=== PATIENT | male | born 1960 | race Caucasian/White ===

== ENCOUNTER 2020-08-09 11:40 | Emergency (ER) | payer SELFPAY ==
[~2020-08-09] VITALS: Ht 175.2 cm; Wt 82.5 kg
[2020-08-09 11:40] VITALS: BP 161/92
[2020-08-09] MEDS ORDERED: NAPR-1071 PO (12:15)
[2020-08-09] MEDS ORDERED: KETOROLAC 60 MG/2 ML VIAL IM ONE (12:15)
[2020-08-09] MEDS ORDERED: ACHD5005 PO (12:15)
[2020-08-09] MEDS ORDERED: METH-732 PO (12:15)
[2020-08-09] MEDS ORDERED: ORPHENADRINE 60 MG/2 ML (NORFLEX) AMP (ED ONLY) IM ONE (12:15)
--- NOTE | 2020-08-09 12:15 | ED Back Pain ---
General Chief Complaint: Back Problems Stated Complaint: BACK PAIN Nursing Triage Note: PATIENT STATES HE BEGAN HAVING PAIN IN HIS LOWER BACK YESTERDAY EVENING. DENIES INJURY OR HX. "ITS FINE IF IM SITTING BUT SOON I TRY TO STAND IT GOES FROM 0 TO 9 OR 10." Nursing Sepsis Screen: No Definite Risk Source of Information: Patient Exam Limitations: No Limitations (JEROME LOUIS APRN) History of Present Illness Date Seen by Provider: Aug 09, 2020 Time Seen by Provider: 12:09 Initial Comments To ER with sudden onset midline low back pain that does not radiate. This began yesterday evening, he had just pulled his boat to the house, got out of the truck and shut the door when he had a sudden intense sharp midline back pain. He states that he is very active, does horseback riding, ATV riding, and never has any troubles with back pain. Pain is minimal when in a sitting position but much worse upon standing. Pain does not radiate down either of his legs, no loss of bowel or bladder control, no fevers or chills no history of cancer no history of IV drug use. Location: Lumbar Spine Timing/Duration: 12-24 Hours Severity: Severe Pain/Injury Location: Back Associated Symptoms: denies symptoms (JEROME LOUIS APRN) Allergies and Home Medications Allergies Coded Allergies: No Known Drug Allergies (Unverified , 08/09/20) Home Medications Hydrocodone/Acetaminophen 1 Each Tablet, 1 TAB PO Q4H PRN for PAIN-MODERATE (5- 7) Prescribed by: JEROME LOUIS on 08/09/20 1215 Methocarbamol 750 Mg Tablet, 750 MG PO Q6-8HR Prescribed by: JEROME LOUIS on 08/09/20 1215 Naproxen 500 Mg Tablet, 500 MG PO BID PRN for PAIN-MODERATE (5-7) Prescribed by: JEROME LOUIS on 08/09/20 1215 Patient Home Medication List Home Medication List Reviewed: Yes (JEROME LOUIS APRN) Review of Systems Constitutional: see HPI EENTM: see HPI Respiratory: no symptoms reported Cardiovascular: no symptoms reported Genitourinary: no symptoms reported Musculoskeletal: see HPI, back pain Skin: no symptoms reported Psychiatric/Neurological: No Symptoms Reported (JEROME LOUIS APRN) Past Pzpyzcu-Mreoin-Wllarm Hx Patient Social History Alcohol Use: Denies Use Type Used: Cigarettes Recent Infectious Disease Expo: No Recent Hopitalizations: No (JEROME LOUIS APRN) Seasonal Allergies Seasonal Allergies: Yes ([place]) (JEROME LOUIS APRN) Past Medical History Orthopedic Respiratory: No Cardiac: Yes High Cholesterol, Hypertension Neurological: No Genitourinary: No Gastrointestinal: No Musculoskeletal: No Endocrine: No HEENT: No Cancer: No Psychosocial: No Integumentary: No Blood Disorders: No (JEROME LOUIS APRN) Physical Exam Vital Signs Vital Signs - First Documented 08/09/20 11:40 Temp 36.7 Pulse 54 Resp 18 B/P (MAP) 161/92 (115) Pulse Ox 98 O2 Delivery Room Air (YESENIA YOUSIF MD) Vital Signs Capillary Refill : Less Than 3 Seconds (JEROME LOUIS APRN) Height, Weight, BMI Height: '" Weight: lbs. oz. kg; 26.00 BMI Method: General Appearance: No Apparent Distress, WD/WN Neck: Full Range of Motion, Normal Inspection Respiratory: No Accessory Muscle Use, No Respiratory Distress Gastrointestinal: Normal Bowel Sounds, Soft Extremity: Normal Capillary Refill, Normal Inspection Neurologic/Psychiatric: Alert, Oriented x3 Skin: Normal Color, Warm/Dry (JEROME LOUIS APRN) Progress/Results/Core Measures Results/Orders Medications Given in ED Current Medications Medications Dose Ordered Sig/Jonathan Route Start Time Stop Time Status Last Admin Dose Admin Ketorolac Tromethamine 60 mg ONCE ONCE IM 08/09/20 12:15 08/09/20 12:16 DC 08/09/20 12:18 60 MG Orphenadrine Citrate 60 mg ONCE ONCE IM 08/09/20 12:15 08/09/20 12:16 DC 08/09/20 12:18 60 MG (YESENIA YOUSIF MD) Vital Signs/I&O 08/09/20 11:40 Temp 36.7 Pulse 54 Resp 18 B/P (MAP) 161/92 (115) Pulse Ox 98 O2 Delivery Room Air (YESENIA YOUSIF MD) Blood Pressure Mean: 115 Departure Impression Primary Impression: Back pain Disposition: 01 HOME, SELF-CARE Condition: Stable Departure-Patient Inst. Decision time for Depature: 12:11 (JEROME LOUIS APRN) Referrals: GORAN BALLESTEROS HOLLY A MD ENOCH,EMPERATRIZ DRAPER,AYLEEN HUNT MD,LOCAL PHYSICIAN (PCP) Primary Care Physician STARR BENITES CHAD C MD Patient Instructions: Low Back Pain (DC) Add. Discharge Instructions: 1. If this pain worsens or is accompanied by loss of bowel and bladder control, numbness of the genitals then return to the emergency room. Otherwise, follow- up with one of the listed providers within 1 week. If the pain fails to improve they may wish to order an MRI. Take pain medication as directed All discharge instructions reviewed with patient and/or family. Voiced understanding. Scripts Hydrocodone/Acetaminophen (Hydrocodone-Acetamin 5-325 mg) 1 Each Tablet 1 TAB PO Q4H PRN for PAIN-MODERATE (5-7), #10 TAB Prov: JEROME LOUIS APRN 08/09/20 Methocarbamol (Methocarbamol) 750 Mg Tablet 750 MG PO Q6-8HR for Back Pain, #14 TAB Prov: JEROME LOUIS APRN 08/09/20 Naproxen (Naprosyn) 500 Mg Tablet 500 MG PO BID PRN for PAIN-MODERATE (5-7), #30 TAB 0 Refills Prov: JEROME LOUIS APRN 08/09/20 Attending physician note: I was physically present in the emergency department during the care of this patient as the attending physician on duty, but I was not directly involved in t he care or decision-making for this patient. (YESENIA YOUSIF MD) JEROME LOUIS APRN Aug 09, 2020 12:14 YESENIA YOUSIF MD Aug 09, 2020 19:32
== END 2020-08-09 12:35 | disposition home or self-care (01) ==
LOC: ER 11:42
DX: M54.5 Low back pain (principal); I10 Essential (primary) hypertension
CPT/HCPCS: 99284

== ENCOUNTER 2020-08-23 14:49 | Emergency (ER) | payer OTHER ==
[~2020-08-23] VITALS: Ht 172 cm; Wt 82.7 kg
[~2020-08-23 14:49] MED LIST: ACHD5005 PO; METH-732 PO; NAPR-1071 PO
--- NOTE | 2020-08-23 15:16 | ED Lower Extremity ---
General Chief Complaint: Lower Extremity Stated Complaint: R ANKLE PAIN Source: patient Exam Limitations: no limitations History of Present Illness Date Seen by Provider: Aug 23, 2020 Time Seen by Provider: 15:15 Initial Comments Right lateral ankle pain after stepping out of a semitruck and twisting the ankle upon making contact with the ground. Onset: just prior to arrival Severity: moderate Pain/Injury Location: right ankle Method of Injury: twisted Modifying Factors: Worse With Movement Allergies and Home Medications Allergies Coded Allergies: No Known Drug Allergies (Unverified , 08/09/20) Home Medications Hydrocodone/Acetaminophen 1 Each Tablet, 1 TAB PO Q4H PRN for PAIN-MODERATE (5- 7) Prescribed by: JEROME LOUIS on 08/09/20 1215 Methocarbamol 750 Mg Tablet, 750 MG PO Q6-8HR Prescribed by: JEROME LOUIS on 08/09/20 1215 Naproxen 500 Mg Tablet, 500 MG PO BID PRN for PAIN-MODERATE (5-7) Prescribed by: JEROME LOUIS on 08/09/20 1215 Patient Home Medication List Home Medication List Reviewed: Yes Review of Systems Constitutional: see HPI EENTM: see HPI Respiratory: no symptoms reported Cardiovascular: no symptoms reported Genitourinary: no symptoms reported Musculoskeletal: see HPI Skin: no symptoms reported Psychiatric/Neurological: No Symptoms Reported Past Vxzpiyt-Qoykuc-Sdzgtb Hx Patient Social History Tobacco Use?: Yes Tobacco type used: Cigarettes Substance use?: No Alcohol Use?: No Pt feels they are or have been: No Immunizations Up To Date Influenza Vaccine Up-to-Date: Yes; Up-to-Date First/Initial COVID19 Vaccinat: NO Seasonal Allergies Seasonal Allergies: Yes ([place]) Past Medical History Orthopedic Respiratory: No Cardiac: Yes High Cholesterol, Hypertension Neurological: No Genitourinary: No Gastrointestinal: No Musculoskeletal: No Endocrine: No HEENT: No Cancer: No Psychosocial: No Integumentary: No Blood Disorders: No Physical Exam Vital Signs Vital Signs - First Documented 08/23/20 15:00 Pulse 61 Resp 18 B/P (MAP) 144/95 (111) Pulse Ox 96 O2 Delivery Room Air Capillary Refill : Height, Weight, BMI Height: '" Weight: lbs. oz. kg; 26.00 BMI Method: General Appearance: WD/WN, no apparent distress HEENT: PERRL/EOMI, normal ENT inspection Respiratory: no respiratory distress, no accessory muscle use Gastrointestinal: normal bowel sounds, non tender Hips: bilateral hip non-tender, bilateral hip normal inspection Legs: bilateral leg non-tender, bilateral leg normal inspection, bilateral leg normal range of motion Knees: bilateral knee non-tender, bilateral knee normal inspection, bilateral knee normal range of motion Ankles: right ankle pain, right ankle soft tissue tenderness, right ankle swelling Feet: bilateral foot non-tender, bilateral foot normal inspection, bilateral foot normal range of motion; right foot other (Denies pain in the foot. There is no ecchymosis or bruising or swelling or erythema. There is swelling over the lateral malleolus.) Neurologic/Psychiatric: alert, normal mood/affect, oriented x 3 Skin: normal color Progress/Results/Core Measures Results/Orders My Orders Orders - JEROME LOUIS APRN Ankle, Right, 3 Views (08/23/20 15:14) Vital Signs/I&O 08/23/20 15:00 Pulse 61 Resp 18 B/P (MAP) 144/95 (111) Pulse Ox 96 O2 Delivery Room Air Departure Impression Primary Impression: Sprain and strain of ankle Disposition: 01 HOME, SELF-CARE Condition: Stable Departure-Patient Inst. Decision time for Depature: 15:31 Referrals: NO,LOCAL PHYSICIAN (PCP/Family) Primary Care Physician Patient Instructions: Ankle Sprain (DC) Add. Discharge Instructions: ice pack to the area. Tylenol and ibuprofen for pain control. Return to ER for any concerns. All discharge instructions reviewed with patient and/or family. Voiced understanding. JEROME LOUIS APRN Aug 23, 2020 15:16
--- NOTE | 2020-08-23 15:41 | Diagnostic Imaging Report ---
INDICATION: Right ankle pain. AP, oblique, and lateral views of the right ankle are obtained. FINDINGS: No fracture or acute bony abnormality is seen. IMPRESSION: Negative right ankle. Dictated by: Dictated on workstation # [id number]
[2020-08-23 15:57] VITALS: BP 144/95
== END 2020-08-23 15:57 | disposition home or self-care (01) ==
LOC: EDUNIT# 14:49 → ER 14:52
DX: S93.401A Sprain of unspecified ligament of right ankle, initial encounter (principal); I10 Essential (primary) hypertension; X50.1XXA Overexertion from prolonged static or awkward postures, initial encounter
CPT/HCPCS: 73610

== ENCOUNTER 2021-04-12 15:57 | Outpatient (RCR) | payer BC | END 2021-04-15 | disposition home or self-care (01) | PROVIDERS: ATTEND Orthopaedic Surgery Sports Medicine | DX: M75.101 Unspecified rotator cuff tear or rupture of right shoulder, not specified as traumatic (principal); I10 Essential (primary) hypertension; Z98.890 Other specified postprocedural states ==

== ENCOUNTER 2021-04-24 16:23 | Outpatient (RCR) | payer BC | END 2021-05-16 | disposition home or self-care (01) | PROVIDERS: ATTEND Orthopaedic Surgery Sports Medicine | DX: M75.101 Unspecified rotator cuff tear or rupture of right shoulder, not specified as traumatic (principal); I10 Essential (primary) hypertension; Z98.890 Other specified postprocedural states ==

== ENCOUNTER 2021-11-04 17:58 | Emergency (ER) | payer SELFPAY ==
[~2021-11-04] VITALS: Ht 172.7 cm; Wt 80.3 kg
[2021-11-04] MEDS ORDERED: ASPIRIN 81 MG CHEW (CHILDREN'S ASA) PO ONE (18:15)
[2021-11-04] MEDS ORDERED: NITROGLYCERIN 0.4 MG SL TABS BTL 25'S SL PRN (18:15)
[2021-11-04 18:21] LABS: BASOPHILS # (AUTO) 0.1 10^3/uL (0.0-0.1); BASOPHILS % (AUTO) 1 % (0-10); EOSINOPHILS # (AUTO) 0.1 10^3/uL (0.0-0.3); EOSINOPHILS % (AUTO) 1 % (0-10); HEMATOCRIT 43 % (40-54); HEMOGLOBIN 14.6 g/dL (13.3-17.7); LYMPHOCYTES # (AUTO) 3.4 10^3/uL (1.0-4.0); LYMPHOCYTES % (AUTO) 32 % (12-44); MEAN CORPUSCULAR HEMOGLOBIN 30 pg (25-34); MEAN CORPUSCULAR HGB CONC 34 g/dL (32-36); MEAN CORPUSCULAR VOLUME 88 fL (80-99); MONOCYTES # (AUTO) 1.2 10^3/uL (0.0-1.0); MONOCYTES % (AUTO) 11 % (0-12); NEUTROPHILS # (AUTO) 5.7 10^3/uL (1.8-7.8); NEUTROPHILS % (AUTO) 54 % (42-75); PLATELET COUNT 211 10^3/uL (130-400); WHITE BLOOD COUNT 10.5 10^3/uL (4.3-11.0)
--- NOTE | 2021-11-04 18:32 | ED General ---
General Chief Complaint: Chest Pain Stated Complaint: CHEST PAIN/LIGHTHEADED/SHAKEY Nursing Triage Note: PT AMB TO [facility] 4 WITH COMPLAINT OF CHEST PAIN. STATES FEELS LIKE HE HAS HAD A COLD/CHEST CONGESTION FOR 17 DAYS. STATES FEELS LIKE SYMPTOMS HAVE WORSENED TODAY. WOKE UP WITH A NIGHT SWEATS. Source of Information: Patient History of Present Illness Date Seen by Provider: Nov 04, 2021 Time Seen by Provider: 18:10 Initial Comments PT ARRIVES VIA POV STATES HE HAS BEEN "FIGHTING A COLD FOR 17 DAYS" C/O "LUNG CONGESTION" "BUT IT'S MORE CENTRAL AND IT WOULD CAUSE ERRATIC PAINS IN THE MIDDLE OF MY CHEST AND TO THE LEFT" PT IS NOT HAVING ANY PAIN OR DISCOMFORT IN HIS CHEST AT THIS TIME. "I CAN FEEL CONGESTION IN MY LOWER LUNGS" --WORSE WHEN HE LAYS DOWN HAS A NON-PRODUCTIVE COUGH, THAT IS GETTING WORSE HAD SUBJECTIVE FEVER INITIALLY, BUT NONE FOR AT LEAST 10 DAYS NO SHORTNESS OF BREATH NO PAIN WITH BREATHING NO SWELLING IN LEGS/FEET OR PAIN IN CALVES. NO RECENT TRAVEL OR PROLONGED SITTING, ETC. 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 PT IS NOT COVID-19 VACCINATED HAS BEEN EXPOSED MULTIPLE TIMES RECENTLY STATES HE DID HAVE COVID IN AUGUST OF 2019--NO TREATMENT. PT HAS HISTORY OF HTN AND HYPERLIPIDEMIA PT HAS NOT SOUGHT CARE AT ANY TIME FOR THESE SYMPTOMS PCP: [facility] Allergies and Home Medications Allergies Coded Allergies: No Known Drug Allergies (Unverified , 08/09/20) Patient Home Medication List Home Medication List Reviewed: Yes Benzonatate (Tessalon Perles) 100 Mg Capsule, 200 MG PO TID Prescribed by: ADAMARIS GAMBLE on 11/04/211924 Guaifenesin/Dextromethorphan (Mucinex Dm ER 1,200-60 mg Tab) 1,200 Mg-60 Mg Tbmp.12hr, 1 EACH PO BID Prescribed by: ADAMARIS GAMBLE on 11/04/211924 Hydrocodone/Acetaminophen (Hydrocodone-Acetamin 5-325 mg) 1 Each Tablet, 1 TAB PO Q4H PRN for PAIN-MODERATE (5-7) Prescribed by: JEROME LOUIS on 08/09/20 1215 Methocarbamol (Methocarbamol) 750 Mg Tablet, 750 MG PO Q6-8HR Prescribed by: JEROME LOUIS on 08/09/20 1215 Naproxen (Naprosyn) 500 Mg Tablet, 500 MG PO BID PRN for PAIN-MODERATE (5-7) Prescribed by: JEROME LOUIS on 08/09/20 1215 Review of Systems Review of Systems Constitutional: see HPI, diaphoresis, dizziness, fever, weakness EENTM: see HPI, nose congestion Respiratory: see HPI, cough; No short of breath, No wheezing Cardiovascular: see HPI; No edema, No palpitations, No syncope Gastrointestinal: no symptoms reported Genitourinary: no symptoms reported Musculoskeletal: no symptoms reported Skin: no symptoms reported Psychiatric/Neurological: No Symptoms Reported Hematologic/Lymphatic: No Symptoms Reported Immunological/Allergic: no symptoms reported Past Nrrtpot-Bxiimo-Fplemh Hx Patient Social History Tobacco Use?: Yes Tobacco type used: Cigarettes Smoking Status: Current Everyday Smoker Use of E-Cig and/or Vaping dev: No Substance use?: No Alcohol Use?: No Pt feels they are or have been: No Immunizations Up To Date First/Initial COVID19 Vaccinat: NO Second COVID19 Vaccination Jose Ramon: NO Third COVID19 Vaccination Date: NO Seasonal Allergies Seasonal Allergies: Yes ([place]) Past Medical History Surgeries: Yes Orthopedic Respiratory: No Cardiac: Yes High Cholesterol, Hypertension Neurological: No Genitourinary: No Gastrointestinal: No Musculoskeletal: Yes (RIGHT ULNAR NERVE SURGERY; LEFT KNEE SCOPE) Endocrine: No HEENT: No Cancer: No Psychosocial: No Integumentary: No Blood Disorders: No Family Medical History SOCIAL HISTORY: -SMOKES 1 PPD -DENIES ETOH -DENIES DRUG USE PAST SURGICAL HISTORY: -RIGHT ULNAR NERVE SURGERY -LEFT KNEE SCOPE Physical Exam Vital Signs Vital Signs - First Documented 11/04/21 18:05 Temp 36.6 Pulse 66 Resp 15 B/P (MAP) 158/115 (129) Pulse Ox 96 O2 Delivery Room Air Capillary Refill : Less Than 3 Seconds Height, Weight, BMI Height: '" Weight: lbs. oz. kg; 26.00 BMI Method: General Appearance: No Apparent Distress, WD/WN, Other (DOES NOT APPEAR ILL OR TO BE IN ANY DISCOMFORT OR DISTRESS. ) HEENT: PERRL/EOMI, TMs Normal, Normal ENT Inspection, Pharynx Normal, Moist Mucous Membranes Neck: Full Range of Motion, Normal Inspection, Non Tender, Supple; No JVD Respiratory: Chest Non Tender, Normal Breath Sounds, No Accessory Muscle Use, No Respiratory Distress Cardiovascular: Regular Rate, Rhythm, No Edema, No JVD, No Murmur, Normal Peripheral Pulses Gastrointestinal: Normal Bowel Sounds, No Organomegaly, Non Tender, Soft Back: No CVA Tenderness Extremity: Normal Capillary Refill, Normal Inspection, Normal Range of Motion, Non Tender, No Calf Tenderness, No Pedal Edema Neurologic/Psychiatric: Alert, Oriented x3, No Motor/Sensory Deficits, Normal 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, 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 Skin: Normal Color, Warm/Dry Progress/Results/Core Measures Suspected Sepsis SIRS Temperature: Pulse: 66 Respiratory Rate: 15 Laboratory Tests 11/04/21 18:12: White Blood Count 10.5 Blood Pressure 158 /115 Mean: 129 Laboratory Tests 11/04/21 18:12: Creatinine 0.99, INR Comment 1.1, Platelet Count 211, Total Bilirubin 0.5 Results/Orders Lab Results Laboratory Tests Test 11/04/21 18:12 11/04/21 18:20 Range/Units White Blood Count 10.5 4.3-11.0 10^3/uL Red Blood Count 4.83 4.30-5.52 10^6/uL Hemoglobin 14.6 13.3-17.7 g/dL Hematocrit 43 40-54 % Mean Corpuscular Volume 88 80-99 fL Mean Corpuscular Hemoglobin 30 25-34 pg Mean Corpuscular Hemoglobin Concent 34 32-36 g/dL Red Cell Distribution Width 13.9 10.0-14.5 % Platelet Count 211 130-400 10^3/uL Mean Platelet Volume 11.0 9.0-12.2 fL Immature Granulocyte % (Auto) 0 % Neutrophils (%) (Auto) 54 42-75 % Lymphocytes (%) (Auto) 32 12-44 % Monocytes (%) (Auto) 11 0-12 % Eosinophils (%) (Auto) 1 0-10 % Basophils (%) (Auto) 1 0-10 % Neutrophils # (Auto) 5.7 1.8-7.8 10^3/uL Lymphocytes # (Auto) 3.4 1.0-4.0 10^3/uL Monocytes # (Auto) 1.2 H 0.0-1.0 10^3/uL Eosinophils # (Auto) 0.1 0.0-0.3 10^3/uL Basophils # (Auto) 0.1 0.0-0.1 10^3/uL Immature Granulocyte # (Auto) 0.0 0.0-0.1 10^3/uL Erythrocyte Sedimentation Rate 2 0-30 MM/HR Prothrombin Time 14.5 12.2-14.7 SEC INR Comment 1.1 0.8-1.4 Activated Partial Thromboplast Time 31 24-35 SEC D-Dimer < 0.27 0.00-0.49 UG/ML Sodium Level 144 135-145 MMOL/L Potassium Level 3.4 L 3.6-5.0 MMOL/L Chloride Level 107 98-107 MMOL/L Carbon Dioxide Level 23 21-32 MMOL/L Anion Gap 14 5-14 MMOL/L Blood Urea Nitrogen 19 H 7-18 MG/DL Creatinine 0.99 0.60-1.30 MG/DL Estimat Glomerular Filtration Rate 86 BUN/Creatinine Ratio 19 Glucose Level 103 70-105 MG/DL Calcium Level 9.2 8.5-10.1 MG/DL Corrected Calcium 9.2 8.5-10.1 MG/DL Magnesium Level 1.8 1.6-2.4 MG/DL Total Bilirubin 0.5 0.1-1.0 MG/DL Aspartate Amino Transf (AST/SGOT) 16 5-34 U/L Alanine Aminotransferase (ALT/SGPT) 17 0-55 U/L Alkaline Phosphatase 49 40-136 U/L Total Creatine Kinase 86 30-200 U/L Creatine Kinase MB 0.8 <6.6 NG/ML Myoglobin 34.1 10.0-92.0 NG/ML Troponin I < 0.028 <0.028 NG/ML C-Reactive Protein High Sensitivity 0.14 0.00-0.50 MG/DL B-Type Natriuretic Peptide 28.1 <100.0 PG/ML Total Protein 6.6 6.4-8.2 GM/DL Albumin 4.0 3.2-4.5 GM/DL Amylase Level 49 25-125 U/L Lipase 23 8-78 U/L Influenza Type A (RT-PCR) Not Detected Not Detecte Influenza Type B (RT-PCR) Not Detected Not Detecte SARS-CoV-2 RNA (RT-PCR) Detected H Not Detecte My Orders Orders - ADAMARIS GAMBLE DO Cbc With Automated Diff (11/04/21 18:10) Magnesium (11/04/21 18:10) Chest 1 View, Ap/Pa Only (11/04/21 18:10) Ekg Tracing (11/04/21 18:10) Comprehensive Metabolic Panel (11/04/21 18:10) Myoglobin Serum (11/04/21 18:10) Protime With Inr (11/04/21 18:10) Partial Thromboplastin Time (11/04/21 18:10) O2 (11/04/21 18:10) Monitor-Rhythm Ecg Trace Only (11/04/21 18:10) Ed Iv/Invasive Line Start (11/04/21 18:10) Creatine Kinase (11/04/21 18:10) Creatine Kinase Mb (11/04/21 18:10) Lipase (11/04/21 18:10) Amylase (11/04/21 18:10) Bnp [place] (11/04/21 18:10) Troponin I Judith (11/04/21 18:10) Nitroglycerin 0.4 Mg Btl 25's (Nitrostat (11/04/21 18:15) Aspirin Chewable Tablet (Baby Aspirin Ch (11/04/21 18:15) Covid 19 Inhouse Test (11/04/21 18:19) Influenza A And B By Pcr (11/04/21 18:19) Isolation Central Supply Req (11/04/21 18:19) Hs C Reactive Protein (11/04/21 18:27) Fibrin Degradation Products (11/04/21 18:27) Erythrocyte Sedimentation Rate (11/04/21 18:27) Medications Given in ED Current Medications Medications Dose Ordered Sig/Jonathan Route Start Time Stop Time Status Last Admin Dose Admin Aspirin 324 mg ONCE ONCE PO 11/04/21 18:15 11/04/21 18:16 DC 11/04/21 18:18 324 MG Vital Signs/I&O 11/04/21 18:05 Temp 36.6 Pulse 66 Resp 15 B/P (MAP) 158/115 (129) Pulse Ox 96 O2 Delivery Room Air Capillary Refill : Less Than 3 Seconds Blood Pressure Mean: 129 Progress Note : Progress Note GIVEN ASPIRIN NTG HELD PT IS NOT HAVING ANY CHEST PAIN AT THIS TIME NO COUGH NO DYSPNEA NO HYPOXIA NO FEVER NO CHEST PAIN NO SWEATS NO SYMPTOMS OF ANY KIND DURING ENTIRE ER STAY PT IS NOT A CANDIDATE FOR ANY COVID TREATMENT HIS SYMPTOMS HAVE BEEN ONGOING FOR > 5 DAYS ECG Initial ECG Impression Date: Nov 04, 2021 Initial ECG Impression Time: 18:26 Initial ECG Rate: 59 Initial ECG Rhythm: Normal Sinus Initial ECG Comparisson: No Previous ECG Available Diagnostic Imaging Comments CXR--PER RADIOLOGIST REPORT AT 1847 COMPARISON: None. FINDINGS: Lungs/pleura: Lungs are clear. There is no pneumothorax. There is no pleural effusion. Mediastinum: Unremarkable. Pulmonary vasculature: Unremarkable. Heart: Unremarkable. Bones/extrathoracic soft tissue: Unremarkable. IMPRESSION: There is no radiographic evidence of acute cardiopulmonary process. Reviewed: Reviewed by Me Departure Impression Primary Impression: COVID-19 virus infection Disposition: 01 HOME, SELF-CARE Condition: Stable Departure-Patient Inst. Decision time for Depature: 19:25 Referrals: [facility] (PCP/Family) Primary Care Physician Patient Instructions: COVID-19 (DC), Preventing the Spread of an Infectious Disease Add. Discharge Instructions: HOME, REST LOTS OF CLEAR LIQUIDS TYLENOL AND MOTRIN NEEDED FOR PAIN OR FEVER FOLLOW UP WITH [facility] IN 5-7 DAYS IF NO BETTER, RETURN TO ER IF WORSE QUARANTINE X 10 DAYS All discharge instructions reviewed with patient and/or family. Voiced understanding. Scripts Benzonatate (TESSALON PERLES) 100 Mg Capsule 200 MG PO TID, #30 CAP Prov: ADAMARSI GAMBLE DO 11/04/21 Guaifenesin/Dextromethorphan (Mucinex Dm ER 1,200-60 mg Tab) 1,200 Mg-60 Mg Tbmp.12hr 1 EACH PO BID, #20 EA Prov: ADAMARIS GAMBLE DO 11/04/21 Work/School Note: Work Release Form Date Seen in the Emergency Department: Nov 04, 2021 Return to Work: Nov 14, 2021 ADAMARIS GAMBLE DO Nov 04, 2021 18:31
--- NOTE | 2021-11-04 18:43 | Diagnostic Imaging Report ---
CLINICAL INDICATION: Patient with chest pain EXAM: Portable chest x-ray upright view. COMPARISON: None. FINDINGS: Lungs/pleura: Lungs are clear. There is no pneumothorax. There is no pleural effusion. Mediastinum: Unremarkable. Pulmonary vasculature: Unremarkable. Heart: Unremarkable. Bones/extrathoracic soft tissue: Unremarkable. IMPRESSION: There is no radiographic evidence of acute cardiopulmonary process. Dictated by: Dictated on workstation # [id number]
[2021-11-04 18:44] LABS: POTASSIUM 3.4 MMOL/L (3.6-5.0)
[2021-11-04 18:45] LABS: CALCIUM 9.2 MG/DL (8.5-10.1)
[2021-11-04 18:46] LABS: INR 1.1 (0.8-1.4); PROTHROMBIN TIME PATIENT 14.5 SEC (12.2-14.7); TOTAL PROTEIN 6.6 GM/DL (6.4-8.2)
[2021-11-04 18:48] LABS: BILIRUBIN,TOTAL 0.5 MG/DL (0.1-1.0)
[2021-11-04 18:50] LABS: CREATININE SERUM 0.99 MG/DL (0.60-1.30)
[2021-11-04 18:53] LABS: MAGNESIUM 1.8 MG/DL (1.6-2.4)
[2021-11-04 19:03] LABS: CREATINE KINASE MB 0.8 NG/ML (<6.6)
[2021-11-04] MEDS ORDERED: GUAI1TBM19 PO (19:25)
[2021-11-04] MEDS ORDERED: BENZ100C18 PO (19:25)
[2021-11-04 19:33] VITALS: BP 162/101
== END 2021-11-04 19:35 | disposition home or self-care (01) ==
LOC: EDUNIT# 17:58 → ER 18:01
DX: U07.1 COVID-19 (principal); F17.210 Nicotine dependence, cigarettes, uncomplicated; Z28.310 Unvaccinated for COVID-19
CPT/HCPCS: 36415; 71045; 80053; 82150; 82550; 82553; 83690; 83735; 83874; 83880; 84484; 85025; 85379; 85610; 85652; 85730; 86141; 87636; 93005; 93041

== ENCOUNTER 2022-06-24 01:32 | Emergency (ER) | payer SELFPAY ==
[~2022-06-24] VITALS: Ht 172.7 cm; Wt 81.6 kg
[~2022-06-24 01:32] MED LIST changes: +BENZ100C18 PO; +GUAI1TBM19 PO
[2022-06-24] MEDS ORDERED: LOSARTAN 50 MG (COZAAR) TAB PO STA (02:00)
--- NOTE | 2022-06-24 02:00 | ED Chest Pain ---
General Chief Complaint: Chest Pain Stated Complaint: DULL ACHE,CP Nursing Triage Note: PT AMB TO RM 5 W C/O CP THAT RADIATES TO LEFT ARM SX 2330. 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 PT REPORTS HE FORGOT TO TAKE HIS HTN MEDS ON 06/23/22, A&OX4. Source: patient Exam Limitations: no limitations History of Present Illness Date Seen by Provider: June 24, 2022 Time Seen by Provider: 01:49 Initial Comments 61-year-old male presents to the emergency department today for chest pain. Symptoms started about 1130 this evening. 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 Actually started as a pressure between his bilateral temples. He then started developing a numb spot in his left anterior chest quickly turned into sharp stabbing pains that are intermittent, only lasting a few seconds at a time but happening multiple times a minute. He then started having close sharp pains in his left hand as well. He called his boss and turned around and came to the emergency department. He denies any recent illness to include fevers chills nausea vomiting abdominal pain, changes in bowel or bladder habits. No coughing. He had a stress test several years ago which he reports was negative. He takes medicine for high blood pressure and high cholesterol which he forgot to take today. He is a smoker. All other systems reviewed and negative except documented per HPI. Voice recognition software was used to help create this chart Allergies and Home Medications Allergies Coded Allergies: No Known Drug Allergies (Unverified , 08/09/20) Patient Home Medication List Home Medication List Reviewed: Yes Benzonatate (Tessalon Perles) 100 Mg Capsule, 200 MG PO TID Prescribed by: ADAMARIS GAMBLE on 11/04/211924 Guaifenesin/Dextromethorphan (Mucinex Dm ER 1,200-60 mg Tab) 1,200 Mg-60 Mg Tbmp.12hr, 1 EACH PO BID Prescribed by: ADAMARIS GAMBLE on 11/04/211924 Hydrocodone/Acetaminophen (Hydrocodone-Acetamin 5-325 mg) 1 Each Tablet, 1 TAB PO Q4H PRN for PAIN-MODERATE (5-7) Prescribed by: JEROME LOUIS on 08/09/20 1215 Methocarbamol (Methocarbamol) 750 Mg Tablet, 750 MG PO Q6-8HR Prescribed by: JEROME LOUIS on 08/09/20 1215 Naproxen (Naprosyn) 500 Mg Tablet, 500 MG PO BID PRN for PAIN-MODERATE (5-7) Prescribed by: JEROME LOUIS on 08/09/20 1215 Review of Systems Review of Systems Constitutional: see HPI Past Guddxab-Txptkl-Bpuvas Hx Patient Social History Tobacco Use?: Yes Tobacco type used: Cigarettes Smoking Status: Current Everyday Smoker Use of E-Cig and/or Vaping dev: No Substance use?: No Alcohol Use?: No Immunizations Up To Date First/Initial COVID19 Vaccinat: NONE Second COVID19 Vaccination Jose Ramon: NONE Third COVID19 Vaccination Date: NONE COVID19 Vaccine [employer] 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: NONE Seasonal Allergies Seasonal Allergies: Yes ([place]) Past Medical History Surgery/Hospitalization HX: HTN, HIGH CHOLESTEROL Surgeries: Yes Orthopedic Respiratory: No Cardiac: Yes High Cholesterol, Hypertension Neurological: No Genitourinary: No Gastrointestinal: No Musculoskeletal: Yes (RIGHT ULNAR NERVE SURGERY; LEFT KNEE SCOPE) Endocrine: No HEENT: No Cancer: No Psychosocial: No Integumentary: No Blood Disorders: No Family Medical History Reviewed Nursing Family Hx No Pertinent Family Hx SOCIAL HISTORY: -SMOKES 1 PPD -DENIES ETOH -DENIES DRUG USE PAST SURGICAL HISTORY: -RIGHT ULNAR NERVE SURGERY -LEFT KNEE SCOPE Physical Exam Vital Signs Vital Signs - First Documented 06/24/22 01:38 Temp 36.2 Pulse 66 Resp 18 B/P (MAP) 166/107 (126) Pulse Ox 98 O2 Delivery Room Air Capillary Refill : Less Than 3 Seconds Height, Weight, BMI Height: '" Weight: lbs. oz. kg; 27.00 BMI Method: General Appearance: No Apparent Distress, WD/WN HEENT: Normal ENT Inspection, Pharynx Normal Neck: Normal Inspection, Non Tender, Supple Respiratory: Chest Non Tender, Lungs Clear, Normal Breath Sounds, No Accessory Muscle Use, No Respiratory Distress Cardiovascular: Regular Rate, Rhythm, No Murmur, Normal Peripheral Pulses Gastrointestinal: Normal Bowel Sounds, No Organomegaly, Non Tender, Soft Extremity: Normal Capillary Refill, Non Tender, No Calf Tenderness, No Pedal Edema Neurologic/Psychiatric: Alert, Oriented x3, Normal Mood/Affect Skin: Normal Color, Warm/Dry Progress/Results/Core Measures Results/Orders Lab Results Laboratory Tests Test 06/24/22 01:48 Range/Units White Blood Count 9.2 4.3-11.0 10^3/uL Red Blood Count 4.92 4.30-5.52 10^6/uL Hemoglobin 14.6 13.3-17.7 g/dL Hematocrit 43 40-54 % Mean Corpuscular Volume 87 80-99 fL Mean Corpuscular Hemoglobin 30 25-34 pg Mean Corpuscular Hemoglobin Concent 34 32-36 g/dL Red Cell Distribution Width 13.6 10.0-14.5 % Platelet Count 207 130-400 10^3/uL Mean Platelet Volume 10.9 9.0-12.2 fL Immature Granulocyte % (Auto) 0 % Neutrophils (%) (Auto) 59 42-75 % Lymphocytes (%) (Auto) 27 12-44 % Monocytes (%) (Auto) 12 0-12 % Eosinophils (%) (Auto) 1 0-10 % Basophils (%) (Auto) 1 0-10 % Neutrophils # (Auto) 5.4 1.8-7.8 10^3/uL Lymphocytes # (Auto) 2.5 1.0-4.0 10^3/uL Monocytes # (Auto) 1.1 H 0.0-1.0 10^3/uL Eosinophils # (Auto) 0.1 0.0-0.3 10^3/uL Basophils # (Auto) 0.1 0.0-0.1 10^3/uL Immature Granulocyte # (Auto) 0.0 0.0-0.1 10^3/uL Sodium Level 142 135-145 MMOL/L Potassium Level 3.3 L 3.6-5.0 MMOL/L Chloride Level 110 H 98-107 MMOL/L Carbon Dioxide Level 21 21-32 MMOL/L Anion Gap 11 5-14 MMOL/L Blood Urea Nitrogen 13 7-18 MG/DL Creatinine 1.16 0.60-1.30 MG/DL Estimat Glomerular Filtration Rate 71 BUN/Creatinine Ratio 11 Glucose Level 99 70-105 MG/DL Calcium Level 8.8 8.5-10.1 MG/DL Corrected Calcium 8.9 8.5-10.1 MG/DL Magnesium Level 2.1 1.6-2.4 MG/DL Total Bilirubin 0.3 0.1-1.0 MG/DL Aspartate Amino Transf (AST/SGOT) 14 5-34 U/L Alanine Aminotransferase (ALT/SGPT) 13 0-55 U/L Alkaline Phosphatase 56 40-136 U/L Troponin I < 0.028 <0.028 NG/ML Total Protein 6.8 6.4-8.2 GM/DL Albumin 3.9 3.2-4.5 GM/DL My Orders Orders - HENOK,ALYSE L DO Ekg Tracing (06/24/22 01:39) Cbc With Automated Diff (06/24/22 01:59) Magnesium (06/24/22 01:59) Chest 1 View, Ap/Pa Only (06/24/22 01:59) Comprehensive Metabolic Panel (06/24/22:59) Monitor-Rhythm Ecg Trace Only (06/24/22 01:59) Ed Iv/Invasive Line Start (06/24/22 01:59) Troponin I Morrison (06/24/22 01:59) Losartan Tablet (Cozaar Tablet) (06/24/22 02:00) Vital Signs/I&O 06/24/22 01:38 Temp 36.2 Pulse 66 Resp 18 B/P (MAP) 166/107 (126) Pulse Ox 98 O2 Delivery Room Air Blood Pressure Mean: 126 Comment Independent review of the twelve-lead EKG shows sinus bradycardia 55 bpm. Normal intervals. Normal axis. No ST or T wave abnormalities. No ectopy. No STEMI. Departure Communication (Admissions) Initial differential includes ACS, pneumothorax, pneumonia, musculoskeletal pain, pleurisy, PE. Negative PERC criteria. No indication for further CT imaging to rule out pulmonary embolus. Initial EKG is negative for ischemia. Not a STEMI. Pending troponin to further rule out ACS. We will get a chest x- ray to rule out pneumonia, pneumothorax. Independent review of chest x-ray shows no acute cardiopulmonary or bony process. No evidence for pneumonia or pneumothorax. Troponin is negative. Remainder of electrolytes unremarkable outside of some mild hypokalemia which is an incidental finding and likely not related to his current illness. There is no evidence for emergent medical condition at this time. His heart score is 3 due to risk factors and age. He is at low overall risk for major adverse cardiac events in the next 30 days and stable for discharge home with further follow-up with primary care doctor. He is comfortable agreeable current plan of care. He is discharged in stable condition. Impression Primary Impression: Atypical chest pain Disposition: 01 HOME, SELF-CARE Condition: Stable Departure-Patient Inst. Referrals: [facility] (PCP/Family) Primary Care Physician Patient Instructions: Chest Pain Add. Discharge Instructions: You are seen in the emergency department for pains in your chest. No evidence of an emergent medical condition is identified. This does not appear to be coming from your heart or lungs at this time. If your symptoms persist I recommend follow-up with primary doctor for discussion of possible stress testing or further testing if necessary. If your symptoms change in any way concerning to you I recommend you return to the emergency department immediately. All discharge instructions reviewed with patient and/or family. Voiced understanding. ALYSE WHITING DO June 24, 2022 02:00
[2022-06-24 02:04] LABS: BASOPHILS # (AUTO) 0.1 10^3/uL (0.0-0.1); BASOPHILS % (AUTO) 1 % (0-10); EOSINOPHILS # (AUTO) 0.1 10^3/uL (0.0-0.3); EOSINOPHILS % (AUTO) 1 % (0-10); HEMATOCRIT 43 % (40-54); HEMOGLOBIN 14.6 g/dL (13.3-17.7); LYMPHOCYTES # (AUTO) 2.5 10^3/uL (1.0-4.0); LYMPHOCYTES % (AUTO) 27 % (12-44); MEAN CORPUSCULAR HEMOGLOBIN 30 pg (25-34); MEAN CORPUSCULAR HGB CONC 34 g/dL (32-36); MEAN CORPUSCULAR VOLUME 87 fL (80-99); MEAN PLATELET VOLUME 10.9 fL (9.0-12.2); MONOCYTES # (AUTO) 1.1 10^3/uL (0.0-1.0); MONOCYTES % (AUTO) 12 % (0-12); NEUTROPHILS # (AUTO) 5.4 10^3/uL (1.8-7.8); NEUTROPHILS % (AUTO) 59 % (42-75); PLATELET COUNT 207 10^3/uL (130-400); WHITE BLOOD COUNT 9.2 10^3/uL (4.3-11.0)
[2022-06-24 02:09] LABS: ALBUMIN 3.9 GM/DL (3.2-4.5)
[2022-06-24 02:10] LABS: POTASSIUM 3.3 MMOL/L (3.6-5.0)
[2022-06-24 02:11] LABS: CALCIUM 8.8 MG/DL (8.5-10.1)
[2022-06-24 02:12] LABS: TOTAL PROTEIN 6.8 GM/DL (6.4-8.2)
[2022-06-24 02:14] LABS: BILIRUBIN,TOTAL 0.3 MG/DL (0.1-1.0)
[2022-06-24 02:16] LABS: CREATININE SERUM 1.16 MG/DL (0.60-1.30)
[2022-06-24 02:18] LABS: MAGNESIUM 2.1 MG/DL (1.6-2.4)
[2022-06-24 02:42] VITALS: BP 172/100
--- NOTE | 2022-06-24 07:38 | Diagnostic Imaging Report ---
INDICATION: Chest pain and shortness of breath COMPARISONS: 11/04/2021 FINDINGS: Single view chest shows normal heart, pleura and diaphragms. Some background chronic parenchymal changes re seen. No consolidations are seen. There is no effusion or pneumothorax. Soft tissues and bony thorax are unremarkable. IMPRESSION: Senescent chest with COPD with prominent chronic parenchymal changes but no evidence of acute cardiomegaly disease. Overall no adverse interval change since the prior exam. Dictated by: Dictated on workstation # [id number]
== END 2022-06-24 02:42 | disposition home or self-care (01) ==
LOC: EDUNIT# 01:32 → ER 01:36
DX: R07.89 Other chest pain (principal); E87.6 Hypokalemia; I10 Essential (primary) hypertension; E78.00 Pure hypercholesterolemia, unspecified; F17.210 Nicotine dependence, cigarettes, uncomplicated; Z28.310 Unvaccinated for COVID-19; Z79.899 Other long term (current) drug therapy
CPT/HCPCS: 36415; 71045; 80053; 83735; 84484; 85025; 93005; 93041